=== PATIENT | female | born 2000 ===

== ENCOUNTER 2023-03-05 13:26 | Emergency (ER) | payer MEDICAID ==
[~2023-03-05] VITALS: Ht 170.2 cm; Wt 86.8 kg
[2023-03-05 13:35] VITALS: BP 136/85
== END 2023-03-05 15:27 | disposition left against medical advice (07) ==
LOC: ER 13:27
DX: R21 Rash and other nonspecific skin eruption (principal); Z53.21 Procedure and treatment not carried out due to patient leaving prior to being seen by health care provider
CPT/HCPCS: 99281